=== PATIENT | female | born 1985 ===

== ENCOUNTER 2020-05-29 12:28 | Outpatient (REF) | payer OTHER, SELFPAY | END 2020-05-29 12:29 | disposition home or self-care (01) | LOC: HO.LAB 12:28 | PROVIDERS: Visit Provider Internal Medicine | DX: Z20.828 Contact with and (suspected) exposure to other viral communicable diseases (principal) | CPT/HCPCS: 36415; C9803; U0003 ==

== ENCOUNTER 2022-04-28 17:41 | Emergency (ER) | payer OTHER, SELFPAY ==
[2022-04-28 19:14] VITALS: BP 115/68; PULSE 76; RESP 16; TEMP 36.5; O2SAT 97; BMI 38.5
--- NOTE | 2022-04-28 19:15 | ED.URI ---
HPI - URI/Sore Throat General Chief Complaint: Headache Stated Complaint: head pressure, congestion Related Data Allergies Allergy/AdvReac Type Severity Reaction Status Date / Time No Known Allergies Allergy Verified 04/28/22 19:14 [facility] Social History Social History Advance Directives: No Advance Directives Information Provided: No Physical Exam Vital Signs: Vital Signs: Last Vital Signs Temp 97.7 F 04/28/22 19:14 Pulse 76 04/28/22 19:14 Resp 16 04/28/22 19:14 BP 115/68 04/28/22 19:14 Pulse Ox 97 04/28/22 19:14 O2 Del Method 04/28/22 19:14 BMI result Body Mass Index 38.5 Course Course Course Narrative: Patient is a 37-year-old female presents today with having coughing generalized malaise headache not feeling well for the last 24 hours. Feels very tired. Has a history of asthma. Never been hospitalized in the past. Patient had COVID in the past. Not vaccinated for COVID. Not vaccinated for flu. No fever positive diarrhea home. Diarrhea is yellow-green in color. Flu RSV COVID was sent. Will monitor. Patient put back in the waiting room Discharge Plan Discharge Clinical Impression: Headache Patient Disposition: Elopement Interventions: ED Discharge Assessment Last Done: 04/28/22 21:56 Discharge Date/Time: 04/28/22 22:40
--- NOTE | 2022-04-28 21:55 | PC.NURSE ---
pt called 3 times and not in waiting area. ledy
== END 2022-04-28 22:40 | disposition left against medical advice (07) ==
LOC: HO.ED 22:39
PROVIDERS: Emergency Provider Emergency Medicine
DX: R51.9 Headache, unspecified (principal); R09.89 Other specified symptoms and signs involving the circulatory and respiratory systems
CPT/HCPCS: 99282

== ENCOUNTER 2022-07-06 08:52 | Emergency (ER) | payer OTHER, SELFPAY ==
--- NOTE | ~2022-07-06 | XR_ITS ---
EXAMINATION: XR CHEST CLINICAL INFORMATION: Chest pain. COMPARISON: None TECHNIQUE: 2 views of the chest were obtained. FINDINGS: No significant abnormality is noted involving the heart, lungs, mediastinum, bony thorax or soft tissues. Status post cholecystectomy. XR/XR chest 2V IMPRESSION: Unremarkable examination.
--- NOTE | 2022-07-06 08:58 | ECG_ITS ---
Test Reason : chest pain Blood Pressure : / mmHG Vent. Rate : 110 BPM Atrial Rate : 110 BPM P-R Int : 128 ms QRS Dur : 068 ms QT Int : 320 ms P-R-T Axes : -09 -07 025 degrees QTc Int : 433 ms Sinus tachycardia Otherwise normal ECG When compared with ECG of 16-JUN-2001 23:38, No significant change was found Referred By: Generic ED Physician Electronically Signed By:Aureliano Rai
[2022-07-06 09:02] VITALS: BP 152/99; PULSE 114; RESP 22; TEMP 36.3; O2SAT 95; BMI 39.0
--- NOTE | 2022-07-06 09:22 | ED_ITS ---
HPI - Chest Pain General Chief Complaint: Chest Pain Stated Complaint: SOB/CP/Fever Time Seen by Provider: 07/06/22 09:11 Source: patient Mode of arrival: ambulatory Limitations: no limitations History of Present Illness HPI narrative: 37 yo female with PMH of HTN, asthma, hypothyroidism here with cough, runny nos e, fevers, wheezing - only has maintenance INH, no prior intubations, no recent prednisone. not vaccinated for COVID. exposed to mom who was sick with COVID this weekend. MD complaint: other (fevers, cough, chills) Onset (ago): day(s) (3) Timing of current episode: constant Prior episodes: Yes Onset: during rest Pain radiation: none Severity: moderate Quality: aching Relieving factors: nothing Exacerbating factors: other (coughing) Context: recent illness Associated symptoms: dyspnea, fever and cough Treatment prior to arrival: other (motrin) Related Data Previous Rx's Medication Instructions Recorded albuterol sulfate 90 mcg/actuation 2 puff inhalation QID PRN 07/06/22 aerosol inhaler shortness of breath or wheezing #6.7 grams nirmatrelvir 300 mg (150 mg See Rx Instructions PO .COMPLEX 07/06/22 x2)-ritonavir 100 mg tablet,dose #30 ea pack(EUA) (Paxlovid) prednisone 20 mg tablet 40 mg PO DAILY 5 days #10 tabs 07/06/22 Allergies Allergy/AdvReac Type Severity Reaction Status Date / Time No Known Allergies Allergy Verified 07/06/22 09:09 Review of Systems Review of Systems: Constitutional : positive Fever, positive Chills, positive fatigue, positive Malaise ENT/Mouth : positive sore throat, positive runny nose Eyes: No Discharge Cardiovascular : No Chest Pain, pos SOB Respiratory : pos Cough, No Sputum Gastrointestinal : No Nausea, No Vomiting, No Diarrhea Genitourinary : No Dysuria, No Urinary Frequency Musculoskeletal : positive Myalgia Skin : No rash Neuro : No Headache PMFSH Past Medical History Attestation statement: The following information was validated with the patient. Medical History (Updated 07/06/22 @ 11:16 by Marcella Pappas DO) Asthma HTN (hypertension) Hypothyroidism Social History Social History (Updated 07/06/22 @ 10:06 by Marcella Pappas DO) Patient Tobacco Use Status: Never used Tobacco Smoked in Last 30 Days: No Advance Directives: No Advance Directives Information Provided: Yes Patient : No Physical Exam Vital Signs: Vital Signs: Last Vital Signs Temp 97.3 F 07/06/22 09:02 Pulse 115 H 07/06/22 09:58 Resp 16 07/06/22 09:58 BP 152/99 H 07/06/22 09:02 Pulse Ox 100 07/06/22 09:58 O2 Del Method 07/06/22 09:58 BMI result Body Mass Index 39.0 Appearance: Alert. Oriented X3. No acute distress. Eyes: Pupils equal, round and reactive to light. ENT: Pharynx normal. Neck: Normal inspection. Neck supple. CVS: Normal heart rate and rhythm. Pulses normal. Respiratory: No respiratory distress. Breath sounds diffuse exp wheezes throughout Abdomen: Soft and nontender. Skin: Skin warm and dry. Normal skin color. Normal skin turgor. Extremities: No lower extremity edema. No calf ttp Neuro: Oriented X 3. No motor deficit. No sensory deficit. Course Course Course Narrative: no hypoxia, improved clear lungs talking up a storm on her phone - interaction rechecker has to stop her amlodopine wants paxlovid Medications Administered Discontinued Medications Generic Name Dose Route Start Last Admin Trade Name Gerard PRN Reason Stop Dose Admin Acetaminophen 650 mg 07/06/22 09:25 07/06/22 09:54 Acetaminophen 325 Mg Tablet PO 07/06/22 09:26 650 mg ONCE ONE Administration Albuterol Sulfate 5 mg 07/06/22 09:25 07/06/22 09:50 Albuterol Sulfate (0.083%) 2.5 Mg/3 Ml Vial.Neb INHALE 07/06/22 09:26 5 mg ONCE ONE Administration Methylprednisolone Sodium Succinate 60 mg 07/06/22 09:25 07/06/22 09:54 Methylprednisolone Sod Succ 125 Mg/2 Ml Vial IVPUSH 07/06/22 09:26 60 mg ONCE ONE Administration Medical Decision Making Medical Decision Making MDM Narrative: 37 yo female with PMH of asthma, HTN, hypothyroidism here with c/o URI symptoms exacerbating her asthma - she is not vaccinated against COVID with direct exposure at this time will need nebs, CXR for pneumonia, COVID swab, IV steroids, neb treatment - if she improves anticipate DC with rescue inhaler, prednisone and paxlovid after interaction rechecker. Doubt ACS or PE - this is URI related. Differential Diagnosis Differential Diagnoses: The differential diagnosis associated with the presentation includes pneumonia, covid, viral Lab Data MDM Lab Attestation statement: I reviewed the patient's lab results. 07/06/22 09:35 07/06/22 09:35 Labs: Lab Results 07/06/22 07/06/22 07/06/22 Range/Units 09:29 09:29 09:35 WBC 7.4 (4.8-10.8) X10*3/uL RBC 4.60 (4.20-5.50) X10*6/uL Hgb 12.5 (12.0-16.0) g/dl Hct 38.6 (37.0-47.0) % MCV 83.9 (80.0-98.0) fL MCH 27.2 (27.0-33.0) pg MCHC 32.4 (31.0-35.0) g/dl RDW 15.7 (11.0-16.0) % Plt Count 304 (160-400) X10*3/uL MPV 10.6 (9.4-12.3) fL Immature Gran % (Auto) 0.4 (0.0-0.4) % Neut % (Auto) 74.8 H (45-73) % Lymph % (Auto) 13.7 L (20-40) % [place] % (Auto) 8.2 (2-11) % Eos % (Auto) 2.4 (0-4) % Baso % (Auto) 0.5 (0-2) % Lymph # (Auto) 1.0 L (1.2-4.9) X10*3/uL [place] # (Auto) 0.6 (0.1-1.2) X10*3/uL Eos # (Auto) 0.2 (0.0-0.4) X10*3/uL Baso # (Auto) 0.0 (0.0-0.2) X10*3/uL Abs Immat Gran (auto) 0.03 (0.00-0.03) X10*3/uL Absolute Neuts (auto) 5.5 (2.0-8.3) x10*3/uL Absolute Nucleated RBC 0.000 (0.0-0.012) X10*3/uL Nucleated RBC % (auto) 0.0 (0.0-0.2) /100WBC Sodium (135-145) mmol/L Potassium (3.3-5.1) mmol/L Chloride (96-108) mmol/L Carbon Dioxide (22-29) mmol/L Anion Gap (12-20) BUN (9-16) mg/dL Creatinine (0.5-1.4) mg/dL Estim Creat Clear Calc Estimated GFR Random Glucose (60-115) mg/dL Calcium (8.4-10.2) mg/dL Total Bilirubin (0.0-1.0) mg/dL Direct Bilirubin (0.0-0.5) mg/dL AST (5-31) U/L ALT (0-31) U/L Alkaline Phosphatase (39-117) U/L Troponin I High Sens (<3.5-17.0) ng/L Total Protein (6.5-8.0) g/dL Albumin (3.5-5.0) g/dL Lipase (8-78) U/L COVID-19 ([facility]) Positive A (Negative) COVID-19 Clin Com See Note Influenza Type A (PEPE) Negative (Negative) Influenza Type B (PEPE) Negative (Negative) Influenza A & B Note See Note 07/06/22 07/06/22 Range/Units 09:35 09:35 WBC (4.8-10.8) X10*3/uL RBC (4.20-5.50) X10*6/uL Hgb (12.0-16.0) g/dl Hct (37.0-47.0) % MCV (80.0-98.0) fL MCH (27.0-33.0) pg MCHC (31.0-35.0) g/dl RDW (11.0-16.0) % Plt Count (160-400) X10*3/uL MPV (9.4-12.3) fL Immature Gran % (Auto) (0.0-0.4) % Neut % (Auto) (45-73) % Lymph % (Auto) (20-40) % [place] % (Auto) (2-11) % Eos % (Auto) (0-4) % Baso % (Auto) (0-2) % Lymph # (Auto) (1.2-4.9) X10*3/uL [place] # (Auto) (0.1-1.2) X10*3/uL Eos # (Auto) (0.0-0.4) X10*3/uL Baso # (Auto) (0.0-0.2) X10*3/uL Abs Immat Gran (auto) (0.00-0.03) X10*3/uL Absolute Neuts (auto) (2.0-8.3) x10*3/uL Absolute Nucleated RBC (0.0-0.012) X10*3/uL Nucleated RBC % (auto) (0.0-0.2) /100WBC Sodium 135 (135-145) mmol/L Potassium 3.9 (3.3-5.1) mmol/L Chloride 105 (96-108) mmol/L Carbon Dioxide 22 (22-29) mmol/L Anion Gap 12 (12-20) BUN 8 L (9-16) mg/dL Creatinine 0.93 (0.5-1.4) mg/dL Estim Creat Clear Calc 83.1 Estimated GFR > 60 Random Glucose 104 (60-115) mg/dL Calcium 8.7 (8.4-10.2) mg/dL Total Bilirubin 0.9 (0.0-1.0) mg/dL Direct Bilirubin 0.3 (0.0-0.5) mg/dL AST 26 (5-31) U/L ALT 31 (0-31) U/L Alkaline Phosphatase 113 (39-117) U/L Troponin I High Sens < 3.5 (<3.5-17.0) ng/L Total Protein 7.4 (6.5-8.0) g/dL Albumin 4.0 (3.5-5.0) g/dL Lipase 72 (8-78) U/L COVID-19 ([facility]) (Negative) COVID-19 Clin Com Influenza Type A (PEPE) (Negative) Influenza Type B (PEPE) (Negative) Influenza A & B Note Independent Interpretation I performed an independent interpretation of an: EKG Interpretation: Rate: 110 Rhythm: sinus tach [place]: left Normal P waves. Normal [place]. Normal QRS complex. ST T wave : no ULICES qTC: normal prior studies: no acute ischemia The study has been interpreted contemporaneously by me. . Radiology Impression Discussion of test interpretation with radiology: I have reviewed the radiologist's reading. Prescription Management I considered prescription management with: Antiviral Discharge Plan Discharge Clinical Impression: COVID-19 Asthma Qualifiers: Asthma severity: moderate Asthma persistence: persistent Asthma complication type: with acute exacerbation Qualified Code(s): J45.41 - Moderate persistent asthma with (acute) exacerbation Patient Disposition: Home, Self-Care Instructions: Asthma (ED), COVID-19 (Coronavirus Disease 2019) (ED) Additional Instructions: return to ED for any worsening symptoms or concerns return for chest pain, worsening breathing, you feel you are worsening you cannot take your amlodipine while taking paxlovid please hold it and hold for 2 days after medications Prescriptions: New prednisone 20 mg tablet 40 mg PO DAILY 5 Days Qty: 10 0RF albuterol sulfate 90 mcg/actuation HFA aerosol inhaler 2 puff inhalation QID PRN (Reason: shortness of breath or wheezing) Qty: 6.7 0RF Paxlovid (EUA) 300 mg (150 mg x 2)-100 mg tablets,dose pack See Rx Instructions .ROUTE .COMPLEX Qty: 30 0RF Rx Instructions: take TWO 150 mg tablets of nirmatrelvir with ONE 100 mg tablet of ritonavir twice daily for 5 days
[2022-07-06 09:41] LABS: MANUAL DIFF FLAG NO
[2022-07-06 09:45] LABS: Basophils Percent Auto 0.5 % (0-2); Eosinophils Absolute Auto 0.2 X10*3/uL (0.0-0.4); Eosinophils Percent Auto 2.4 % (0-4); Hematocrit 38.6 % (37.0-47.0); Hemoglobin 12.5 g/dl (12.0-16.0); Imm Gran Abs Auto 0.03 X10*3/uL (0.00-0.03); Imm Gran Pct Auto 0.4 % (0.0-0.4); Lymphocytes Percent Auto 13.7 % (20-40); Mean Corpuscular HGB Conc 32.4 g/dl (31.0-35.0); Mean Corpuscular Hemoglobin 27.2 pg (27.0-33.0); Mean Corpuscular Volume 83.9 fL (80.0-98.0); Mean Platelet Volume 10.6 fL (9.4-12.3); Monocytes Absolute Auto 0.6 X10*3/uL (0.1-1.2); Monocytes Percent Auto 8.2 % (2-11); Neutrophils Absolute Auto 5.5 x10*3/uL (2.0-8.3); Neutrophils Percent Auto 74.8 % (45-73); Platelet Count 304 X10*3/uL (160-400); Red Cell Distribution Width 15.7 % (11.0-16.0); White Blood Count 7.4 X10*3/uL (4.8-10.8)
[2022-07-06] MEDS: Albuterol Sulfate (0.083%) 2.5 MG/3 ML VIAL.NEB 5 MG INHALE (09:50)
[2022-07-06 09:51] VITALS: PULSE 100; RESP 22; O2SAT 96
[2022-07-06] MEDS: methylPREDNISolone Sod Succ 125 MG/2 ML VIAL 60 MG IVPUSH (09:54)
[2022-07-06] MEDS: Acetaminophen 325 MG TABLET 650 MG PO (09:54)
[2022-07-06 09:58] VITALS: PULSE 115; RESP 16; O2SAT 100
[2022-07-06 10:02] LABS: Alanine Aminotransferase 31 U/L (0-31); Alkaline Phosphatase 113 U/L (39-117); Anion Gap 12 (12-20); Aspartate Amino Transferase 26 U/L (5-31); Bilirubin Direct 0.3 mg/dL (0.0-0.5); Bilirubin Total 0.9 mg/dL (0.0-1.0); Blood Urea Nitrogen 8 mg/dL (9-16); Calcium 8.7 mg/dL (8.4-10.2); Carbon Dioxide 22 mmol/L (22-29); Chloride 105 mmol/L (96-108); Creatinine Clr Calc Pharmacy 83.1; Estimated Glomerular Filt Rate > 60; Glucose Random 104 mg/dL (60-115); Lipase 72 U/L (8-78); Potassium 3.9 mmol/L (3.3-5.1); Sodium 135 mmol/L (135-145); Total Protein 7.4 g/dL (6.5-8.0)
[2022-07-06 10:10] LABS: Troponin-I High Sensitivity < 3.5 ng/L (<3.5-17.0)
[2022-07-06 10:11] LABS: COVID-19 Test Positive (Negative); IDNOW Serial# BCCEAD1C
[2022-07-06 10:12] LABS: IDNOW Serial# 9DB6401D; Influenza A Negative (Negative); Influenza B2 Negative (Negative)
[2022-07-06 10:51] VITALS: BP 106/70; PULSE 114; RESP 16; TEMP 37.6; O2SAT 95
== END 2022-07-06 12:24 | disposition home or self-care (01) ==
PROVIDERS: Emergency Provider Emergency Medicine
DX: U07.1 COVID-19 (principal); R06.02 Shortness of breath; R05.9 Cough, unspecified; R50.9 Fever, unspecified; Z79.899 Other long term (current) drug therapy
CPT/HCPCS: 71046; 80048; 80076; 83690; 84484; 85025; 87502; 87635; 93005; 94640; 96374; 99284; 99285; J2930

== ENCOUNTER 2023-12-01 09:38 | Emergency (ER) | payer OTHER, SELFPAY ==
[2023-12-01 10:22] VITALS: BP 139/88; PULSE 73; RESP 16; TEMP 36.8; O2SAT 98; BMI 24.4
--- NOTE | 2023-12-01 11:32 | ED_ITS ---
HPI - Back Pain/Injury General Chief Complaint: Back Pain/Injury Stated Complaint: back pain Time Seen by Provider: 12/01/23 11:32 Source: patient Mode of arrival: ambulatory Limitations: no limitations History of Present Illness ED Provider: Lorenza Espinoza PA-C HPI Narrative: 38 yo female presents to the ER for evaluation of left sided neck, shoulder, and upper back pain for the last 1 week. No preceding event or injury but she works at [employer] where she is on her feet a lot and does a lot of lifting and twisting. The pain is constant, spasming in nature and worse with any movements. No SOB or chest pain. No weakness, numbness or tingling. No headaches. Has not taken any medications for the pain. MD elicited complaint: back pain and other (left sided neck pain) Onset (ago): week(s) (1) Timing: progressively worsening Severity: severe Similar Symptoms Previously: Yes Quality: aching and spasming Location: left upper back Radiation: neck Exacerbating factors: movement Relieving factors: none Context: unknown Associated symptoms: denies other symptoms Related Data Previous Rx's ?Medication ?Instructions ?Recorded albuterol sulfate 90 mcg/actuation 2 puff inhalation QID PRN 07/06/22 aerosol inhaler shortness of breath or wheezing #6.7 grams nirmatrelvir 300 mg (150 mg See Rx Instructions PO .COMPLEX 07/06/22 x2)-ritonavir 100 mg tablet,dose #30 ea pack (Paxlovid) prednisone 20 mg tablet 40 mg (2 x 20 mg) PO DAILY 5 days 07/06/22 #10 tabs acetaminophen 500 mg tablet 1,000 mg (2 x 500 mg) PO Q6H PRN 12/01/23 (Tylenol Extra Strength) pain #20 tabs cyclobenzaprine 10 mg tablet 10 mg PO TID PRN muscle spasm #10 12/01/23 tabs lidocaine 5 % topical patch 1 patch topical DAILY #15 ea 12/01/23 Allergies Allergy/AdvReac Type Severity Reaction Status Date / Time No Known Allergies Allergy Verified 12/01/23 10:24 Review of Systems Review of Systems: Yes all other systems are reviewed and are negative [facility] Past Medical History Medical History (Updated 12/01/23 @ 11:46 by CARLOS Odonnell) Hypothyroidism HTN (hypertension) Asthma Social History Social History (Updated 07/06/22 @ 10:06 by Marcella Pappas DO) Patient Tobacco Use Status: Never used Tobacco Advance Directives: No Physical Exam Vital Signs: Vital Signs: Last Vital Signs Temp 98.3 F 12/01/23 10:22 Pulse 73 12/01/23 10:22 Resp 16 12/01/23 10:22 BP 139/88 12/01/23 10:22 Pulse Ox 98 12/01/23 10:22 O2 Del Method Room Air 12/01/23 10:22 BMI result Body Mass Index 24.4 Appearance: Alert. Oriented X3. No acute distress. Head: normocephalic, atraumatic. Eyes: Pupils equal, round and reactive to light. ENT: Pharynx normal. No tonsillar swelling or exudate. Neck: Normal inspection. Neck supple. palpable muscle spasm on the left lateral neck and upper traperzius. CVS: Normal heart rate and rhythm. Pulses normal. Respiratory: No respiratory distress. Breath sounds normal. Skin: Skin warm and dry. Normal skin color. Normal skin turgor. No rashes. Extremities: No lower extremity edema. No joint swelling. Pain with passive rom of the LUE Back: normal inspection. no midline tenderness. there is soft tissue tenderness and palpable spasm of the left thoracic paraspinous muscles. Neuro/psych: Oriented X 3. No motor deficit. No sensory deficit. CN II-XII intact. Normal speech and cognition. Medical Decision Making Medical Decision Making MDM Narrative: 38 yo female presenting with left sided neck, shoulder, and upper back pain x1 week. no red flag symptoms. exam and clinical presentation are c/w muscle strain and spasm. will treat accordingly. work note provided per request. encouraged f/u with PCP. stable for d/c home. Differential Diagnosis Differential Diagnoses: The differential diagnosis associated with the presentation includes Muscle strain, malignancy, trauma, osteoporosis, nerve root compression, radiculopathy, plexopathy, degenerative disc disease, disc herniation, spinal stenosis, sacroiliac joint dysfunction, facet joint injury, and less likely infection?like abscess or diskitis External Record Review External record reviewed: Outpatient record, Prior outpatient labs and Prior outpatient radiology Tests considered The following testing was considered but not selected: considered xrays Prescription Management I considered prescription management with: Pain Medication Critical Care Time Critical Care Time Critical Care Time: No Discharge Plan Discharge Clinical Impression: Thoracic back pain Patient Disposition: Home, Self-Care Instructions: Back Pain (ED) Additional Instructions: Your pain is most likely due to muscle strain and spasm. Limit bending, lifting or twisting, do left objects heavier than 10lbs until you are feeling better. Use ice several times per day for 20 minutes at a time for the next 48 hours and then change to heat. Take medications as prescribed to help with pain and discomfort. Follow up with your Primary Care Doctor this week. Recommend referral to Physical Therapy. If your pain worsens, if you develop new numbness, tingling, weakness, loss of function or incontinence call 911 or come back to the ER right away for evaluation. Prescriptions: New cyclobenzaprine 10 mg tablet 10 mg PO TID PRN (Reason: muscle spasm) Qty: 10 0RF lidocaine 5 % adhesive patch,medicated 1 patch topical DAILY Qty: 15 0RF Rx Instructions: leave on most painful area for up to 12 hrs acetaminophen [Tylenol Extra Strength] 500 mg tablet 1,000 mg PO Q6H PRN (Reason: pain) Qty: 20 0RF No Action prednisone 20 mg tablet 40 mg PO DAILY 5 Days Qty: 10 0RF albuterol sulfate 90 mcg/actuation HFA aerosol inhaler 2 puff inhalation QID PRN (Reason: shortness of breath or wheezing) Qty: 6.7 0RF Paxlovid 300 mg (150 mg x 2)-100 mg tablets,dose pack See Rx Instructions .ROUTE .COMPLEX Qty: 30 0RF Rx Instructions: take TWO 150 mg tablets of nirmatrelvir with ONE 100 mg tablet of ritonavir twice daily for 5 days Stand Alone Forms: Work/School Release Print Language: [place]
--- NOTE | 2023-12-01 11:33 | PC.NURSE ---
pt was seen by triage provider and assessed for discharge
== END 2023-12-01 11:47 | disposition home or self-care (01) ==
PROVIDERS: Emergency Provider Emergency Medicine
DX: M54.6 Pain in thoracic spine (principal)
CPT/HCPCS: 99281; 99283

== ENCOUNTER 2024-04-01 14:25 | Emergency (ER) | payer OTHER, SELFPAY ==
--- NOTE | ~2024-04-01 | XR_ITS ---
EXAMINATION: XR CHEST CLINICAL INFORMATION: Asthma exacerbation COMPARISON: None available. TECHNIQUE: 2 views of the chest were obtained. FINDINGS: No significant abnormality is noted involving the heart, lungs, mediastinum, bony thorax or soft tissues. XR/XR chest 2V IMPRESSION: Unremarkable examination. Electronically signed by: Alison Trinh MD 04/01/2024 03:38 [place] [facility] [place]
[2024-04-01 14:30] VITALS: BP 125/92; PULSE 81; O2SAT 100; BMI 32.4
[2024-04-01 14:36] VITALS: BP 131/89; PULSE 85; RESP 16; TEMP 36.4; O2SAT 100
--- NOTE | 2024-04-01 14:38 | PC.NURSE ---
biba from home d/t asthma exacerbation s/p pine radha inhalation. pt used albuterol/symbicort @ home w/o relief. audible wheezing upon EMS arrival - received duoneb/solumedrol via EMS w/ minimal effect. upon ED arrival - pt a&ox4. vss and up to date. pt's duoneb finished upon ED arrival. 100% on RA w/o difficulty. pt speaking in full/clear sentences. some sob noted. pt positioned upright to promote patent airway. respirations even/slightly labored. 20gIV placed in the right AC via EMS - patent/intact. pt having chest xray completed at this time. plan of care ongoing.
[2024-04-01 14:56] LABS: MANUAL DIFF FLAG NO
[2024-04-01 14:57] LABS: Basophils Absolute Auto 0.1 X10*3/uL (0.0-0.2); Basophils Percent Auto 0.7 % (0-2); Eosinophils Absolute Auto 0.4 X10*3/uL (0.0-0.4); Eosinophils Percent Auto 4.3 % (0-4); Hemoglobin 13.6 g/dl (12.0-16.0); Imm Gran Abs Auto 0.03 X10*3/uL (0.00-0.03); Imm Gran Pct Auto 0.4 % (0.0-0.4); Lymphocytes Absolute Auto 2.3 X10*3/uL (1.2-4.9); Lymphocytes Percent Auto 28.1 % (20-40); Mean Corpuscular Hemoglobin 29.7 pg (27.0-33.0); Mean Corpuscular Volume 87.3 fL (80.0-98.0); Mean Platelet Volume 10.2 fL (9.4-12.3); Monocytes Absolute Auto 0.4 X10*3/uL (0.1-1.2); Monocytes Percent Auto 5.3 % (2-11); Neutrophils Percent Auto 61.2 % (45-73); Platelet Count 352 X10*3/uL (160-400); Red Blood Count 4.58 X10*6/uL (4.20-5.50); Red Cell Distribution Width 13.8 % (11.0-16.0); White Blood Count 8.2 X10*3/uL (4.8-10.8)
[2024-04-01 15:02] VITALS: PULSE 75; RESP 23; O2SAT 96
[2024-04-01] MEDS: Albuterol Sulfate 2.5 MG, Albuterol/Iprat 2.5/0.5MG 3 ML 3 ML INHALE (15:03)
[2024-04-01 15:21] LABS: Alanine Aminotransferase 14 U/L (0-31); Albumin Level 4.2 g/dL (3.5-5.0); Alkaline Phosphatase 99 U/L (39-117); Anion Gap 16 (12-20); Aspartate Amino Transferase 20 U/L (5-31); Blood Urea Nitrogen 11 mg/dL (9-16); Calcium 9.7 mg/dL (8.4-10.2); Carbon Dioxide 21 mmol/L (22-29); Chloride 108 mmol/L (96-108); Creatinine Clr Calc Pharmacy 82.5; Estimated Glomerular Filt Rate > 60; Glucose Random 103 mg/dL (60-115); HCG Quantitative < 2 mIU/mL; Magnesium 2.1 mg/dL (1.6-2.6); Potassium 4.2 mmol/L (3.3-5.1); Sodium 141 mmol/L (135-145); Total Protein 8.3 g/dL (6.5-8.0)
--- NOTE | 2024-04-01 15:34 | ED_ITS ---
HPI - SOB/Dyspnea General Chief Complaint: Dyspnea Stated Complaint: ASTHMA EXACERBATION Time Seen by Provider: 04/01/24 15:33 Source: patient, EMS, RN notes reviewed and old records reviewed Mode of arrival: EMS History of Present Illness ED Provider: Roxana Hargrove PA-C HPI Narrative: 39-year-old female with a past medical history of asthma presenting to the ED via EMS secondary to asthma exacerbation with cough, chest tightness, and SOB s/p cleaning house with [employer] and [place]. Admits to using albuterol and Symbicort inhalers at home without relief. 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 Denies recent travel, pedal edema, calf tenderness, fever/chills. + possible sick contacts Related Data Previous Rx's ?Medication ?Instructions ?Recorded albuterol sulfate 90 mcg/actuation 2 puff inhalation QID PRN 07/06/22 aerosol inhaler shortness of breath or wheezing #6.7 grams nirmatrelvir 300 mg (150 mg See Rx Instructions PO .COMPLEX 07/06/22 x2)-ritonavir 100 mg tablet,dose #30 ea pack (Paxlovid) prednisone 20 mg tablet 40 mg (2 x 20 mg) PO DAILY 5 days 07/06/22 #10 tabs acetaminophen 500 mg tablet 1,000 mg (2 x 500 mg) PO Q6H PRN 12/01/23 (Tylenol Extra Strength) pain #20 tabs cyclobenzaprine 10 mg tablet 10 mg PO TID PRN muscle spasm #10 12/01/23 tabs lidocaine 5 % topical patch 1 patch topical DAILY #15 ea 12/01/23 albuterol sulfate 2.5 mg/0.5 mL 5 mg inhalation Q4H PRN shortness 04/01/24 solution for nebulization of breath or wheezing #30 ea prednisone 20 mg tablet 40 mg (2 x 20 mg) PO DAILY 5 days 04/01/24 #10 tabs Allergies Allergy/AdvReac Type Severity Reaction Status Date / Time No Known Allergies Allergy Verified 04/01/24 14:32 Review of Systems 2 Review of Systems: Yes all other systems are reviewed and are negative Constitutional: Constitutional: Reports as per [facility] Past Medical History Attestation statement: The following information was validated with the patient. Source: old records reviewed Medical History Hypothyroidism HTN (hypertension) Asthma Social History Social History Patient Tobacco Use Status: Never used Tobacco Advance Directives: No Advance Directives Information Provided: No Do you have a plan to hurt others: No Plan Physical Exam 2 Vital Signs: Vital Signs: Last Vital Signs Temp 97.6 F 04/01/24 14:36 Pulse 75 04/01/24 15:02 Resp 23 H 04/01/24 15:02 BP 131/89 04/01/24 14:36 Pulse Ox 100 04/01/24 14:36 O2 Del Method Room Air 04/01/24 14:36 BMI result Body Mass Index 32.4 Const: General: cooperative, healthy appearing and no acute distress O rientation/consciousness: patient oriented x3 Limitations: no limitations HEENT: Head: Yes normal to inspection and Yes atraumatic Ears: hearing grossly normal bilaterally General nose exam: Normal external nose present Face and sinus: Yes normal facial exam Eyes: General: appearance normal, both eyes and all related structures EOM: EOMs intact bilaterally Neck: Neck: Yes normal visual inspection and Yes no meningeal signs Resp: Effort & Inspection: normal respiratory effort and no respiratory distress Auscultation: clear to auscultation bilaterally, no rales, no rhonchi and no wheezes Cardio: Rate: regular rate Heart sounds: S1 normal heart sound present and S2 normal heart sound present GI: Inspection: Yes normal to inspection Palpation (GI): Soft to palpation, nontender, no guarding and not rigid Skin: Rashes: no rashes Wounds: no wounds Neuro: General: patient oriented x3, tone normal and no meningeal signs C ranial nerves: Yes CN's II-XII intact bilaterally Gait exam (Neuro): Normal gait present Extrem: General: Yes normal to inspection, Yes no pedal edema and Yes no calf tenderness Course Course Course Narrative: -no leukocytosis. Labs otherwise reassuring 1630--ED care transferred to [facility] pending troponin, viral testing, and re- evaluation Medications Administered Discontinued Medications Generic Name Dose Route Start Last Admin Trade Name Freq PRN Reason Stop Dose Admin Albuterol Sulfate 2.5 mg/ 0 mg 04/01/24 14:56 04/01/24 15:03 Albuterol/Ipratropium 3 ml INHALE 04/01/24 14:57 5 dose ONCE ONE Administration Medical Decision Making Medical Decision Making [facility] Narrative: 39-year-old female with a past medical history of asthma presenting to the ED via EMS secondary to asthma exacerbation with cough, chest tightness, and SOB s/p cleaning house with [employer] and [place]. 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 On exam vital signs stable, NAD, nontoxic appearing, talking in complete sentences, on this scenario writer's eval lungs CTA, talking in complete sentences, no pedal edema or calf tenderness. Patient has received treatments by EMS as well as additional DuoNeb in the ED with positive results. Concern for asthma exacerbation vs viral illness vs pneumonia. Lower suspicion for ACS/PE or DVT at this time Plan: EKG, labs, viral studies, CXR, ED bronchodilator protocol, re-evaluate Please refer to course for remaining clinical decision making, interpretation of labs/imaging results, and discussions with consultants and/or family members. Differential Diagnosis Differential Diagnoses: The differential diagnosis associated with the presentation includes As above Admission/Observation Consideration of admission/observation: Escalation of care including admission/observation considered Lab Data [facility] Lab Attestation statement: I reviewed the patient's lab results. 04/01/24 14:53 04/01/24 14:53 Labs: Lab Results 04/01/24 Range/Units 14:53 WBC 8.2 (4.8-10.8) X10*3/uL RBC 4.58 (4.20-5.50) X10*6/uL Hgb 13.6 (12.0-16.0) g/dl Hct 40.0 (37.0-47.0) % MCV 87.3 (80.0-98.0) fL MCH 29.7 (27.0-33.0) pg MCHC 34.0 (31.0-35.0) g/dl RDW 13.8 (11.0-16.0) % Plt Count 352 (160-400) X10*3/uL MPV 10.2 (9.4-12.3) fL Immature Gran % (Auto) 0.4 (0.0-0.4) % Neut % (Auto) 61.2 (45-73) % Lymph % (Auto) 28.1 (20-40) % [place] % (Auto) 5.3 (2-11) % Eos % (Auto) 4.3 H (0-4) % Baso % (Auto) 0.7 (0-2) % Lymph # (Auto) 2.3 (1.2-4.9) X10*3/uL [place] # (Auto) 0.4 (0.1-1.2) X10*3/uL Eos # (Auto) 0.4 (0.0-0.4) X10*3/uL Baso # (Auto) 0.1 (0.0-0.2) X10*3/uL Abs Immat Gran (auto) 0.03 (0.00-0.03) X10*3/uL Absolute Neuts (auto) 5.0 (2.0-8.3) x10*3/uL Absolute Nucleated RBC 0.000 (0.0-0.012) X10*3/uL Nucleated RBC % (auto) 0.0 (0.0-0.2) /100WBC Sodium 141 (135-145) mmol/L Potassium 4.2 (3.3-5.1) mmol/L Chloride 108 (96-108) mmol/L Carbon Dioxide 21 L (22-29) mmol/L Anion Gap 16 (12-20) BUN 11 (9-16) mg/dL Creatinine 0.83 (0.5-1.4) mg/dL Estim Creat Clear Calc 82.5 Estimated GFR > 60 Random Glucose 103 (60-115) mg/dL Calcium 9.7 D (8.4-10.2) mg/dL Magnesium 2.1 (1.6-2.6) mg/dL Total Bilirubin 1.0 (0.0-1.0) mg/dL AST 20 (5-31) U/L ALT 14 (0-31) U/L Alkaline Phosphatase 99 (39-117) U/L Total Protein 8.3 H (6.5-8.0) g/dL Albumin 4.2 (3.5-5.0) g/dL Beta HCG, Quant < 2 mIU/mL Independent Interpretation I performed an independent interpretation of an: EKG and Plain X-Ray Radiology Impression Discussion of test interpretation with radiology: I have reviewed the radiologist's reading. Independent Historian Clinical information obtained from an independent historian. History obtained from or confirmed by: EMS External Record Review External record reviewed: Inpatient record, Office record, Outpatient record, Prior outpatient labs, Prior outpatient radiology, Primary care record and Outside ED record Tests considered The following testing was considered but not selected: As above Prescription Management I considered prescription management with: Antibiotic Chronic Conditions Patient?s care impacted by: Other (Asthma) Social Determinants Patient?s care significantly limited by Social Determinants of Health including: Other Social Determinant of Health Discharge Plan Discharge Clinical Impression: Asthma with exacerbation Patient Disposition: Still a Patient Instructions: Asthma (DC) Additional Instructions: Your x-rays unremarkable Please take prednisone as prescribed until completion Continue to use your inhalers and neb machine at home If her symptoms persist or worsen, you constant worsening chest pain or shortness of breath return to the ED Prescriptions: New prednisone 20 mg tablet 40 mg PO DAILY 5 Days Qty: 10 0RF albuterol sulfate 2.5 mg/0.5 mL solution for nebulization 5 mg inhalation Q4H PRN (Reason: shortness of breath or wheezing) Qty: 30 0RF No Action prednisone 20 mg tablet 40 mg PO DAILY 5 Days Qty: 10 0RF albuterol sulfate 90 mcg/actuation HFA aerosol inhaler 2 puff inhalation QID PRN (Reason: shortness of breath or wheezing) Qty: 6.7 0RF Paxlovid 300 mg (150 mg x 2)-100 mg tablets,dose pack See Rx Instructions .ROUTE .COMPLEX Qty: 30 0RF Rx Instructions: take TWO 150 mg tablets of nirmatrelvir with ONE 100 mg tablet of ritonavir twice daily for 5 days cyclobenzaprine 10 mg tablet 10 mg PO TID PRN (Reason: muscle spasm) Qty: 10 0RF lidocaine 5 % adhesive patch,medicated 1 patch topical DAILY Qty: 15 0RF Rx Instructions: leave on most painful area for up to 12 hrs acetaminophen [Tylenol Extra Strength] 500 mg tablet 1,000 mg PO Q6H PRN (Reason: pain) Qty: 20 0RF Referrals: Physician,Unknown J [Primary Care Provider] - Print Language: Kiswahili
--- NOTE | 2024-04-01 15:38 | ECG_ITS ---
Test Reason : DYSPNEA Blood Pressure : / mmHG Vent. Rate : 085 BPM Atrial Rate : 085 BPM P-R Int : 120 ms QRS Dur : 070 ms QT Int : 370 ms P-R-T Axes : 009 -16 005 degrees QTc Int : 440 ms Normal sinus rhythm Normal ECG When compared with ECG of 06-JUL-2022 09:03, Nonspecific T wave abnormality, worse in Anterior leads Referred By: Roxana Hargrove Electronically Signed By:Aureliano Rai
[2024-04-01 16:26] VITALS: BP 144/85; PULSE 96; RESP 18; TEMP 37; O2SAT 96
[2024-04-01 17:57] LABS: COVID-19 Test Negative (Negative); IDNOW Serial# 152EDE1D; IDNOW Serial# 9DB6401D; Influenza A Negative (Negative); Influenza B2 Negative (Negative)
[2024-04-01 18:02] LABS: Troponin-I High Sensitivity < 2.7 ng/L (<3.5-17.0)
[2024-04-01 18:20] VITALS: BP 137/80; PULSE 90; RESP 16; TEMP 36.2; O2SAT 94
== END 2024-04-01 18:21 | disposition home or self-care (01) ==
PROVIDERS: Physician Assistant; Physician Assistant Medical; Emergency Provider Emergency Medicine
DX: J45.901 Unspecified asthma with (acute) exacerbation (principal); R05.9 Cough, unspecified; R07.89 Other chest pain; R06.02 Shortness of breath; Z11.52 Encounter for screening for COVID-19; Z79.899 Other long term (current) drug therapy
CPT/HCPCS: 36415; 71046; 80053; 83735; 84484; 84702; 85025; 87502; 87635; 93005; 94640; 99284

== ENCOUNTER → 2024-04-01 15:38 | Outpatient (BNV) | payer OTHER, SELFPAY | PROVIDERS: Emergency Provider Emergency Medicine; Visit Provider Internal Medicine Cardiovascular Disease | DX: R06.09 Other forms of dyspnea (principal) | CPT/HCPCS: 93010 ==

== ENCOUNTER 2024-06-05 08:40 | Emergency (ER) | payer OTHER, SELFPAY ==
[2024-06-05 08:46] VITALS: BP 143/96; PULSE 95; RESP 20; TEMP 36.6; O2SAT 97; BMI 31.8
[2024-06-05 09:39] LABS: MANUAL DIFF FLAG NO
[2024-06-05 09:51] LABS: Basophils Percent Auto 0.4 % (0-2); Eosinophils Absolute Auto 0.3 X10*3/uL (0.0-0.4); Eosinophils Percent Auto 4.8 % (0-4); Hematocrit 42.9 % (37.0-47.0); Hemoglobin 14.6 g/dl (12.0-16.0); Imm Gran Abs Auto 0.01 X10*3/uL (0.00-0.03); Imm Gran Pct Auto 0.1 % (0.0-0.4); Lymphocytes Absolute Auto 1.3 X10*3/uL (1.2-4.9); Lymphocytes Percent Auto 19.2 % (20-40); Mean Corpuscular Hemoglobin 29.4 pg (27.0-33.0); Mean Corpuscular Volume 86.5 fL (80.0-98.0); Mean Platelet Volume 11.1 fL (9.4-12.3); Monocytes Absolute Auto 0.3 X10*3/uL (0.1-1.2); Monocytes Percent Auto 4.6 % (2-11); Neutrophils Absolute Auto 4.9 x10*3/uL (2.0-8.3); Neutrophils Percent Auto 70.9 % (45-73); Platelet Count 293 X10*3/uL (160-400); Red Blood Count 4.96 X10*6/uL (4.20-5.50); Red Cell Distribution Width 13.2 % (11.0-16.0); White Blood Count 6.9 X10*3/uL (4.8-10.8)
[2024-06-05 10:03] LABS: Alanine Aminotransferase 17 U/L (0-31); Albumin Level 4.4 g/dL (3.5-5.0); Alkaline Phosphatase 101 U/L (39-117); Anion Gap 10 (12-20); Aspartate Amino Transferase 19 U/L (5-31); Bilirubin Total 1.4 mg/dL (0.0-1.0); Blood Urea Nitrogen 11 mg/dL (9-16); Calcium 8.8 mg/dL (8.4-10.2); Carbon Dioxide 24 mmol/L (22-29); Chloride 106 mmol/L (96-108); Creatinine Clr Calc Pharmacy 82.6; Estimated Glomerular Filt Rate > 60; Glucose Random 97 mg/dL (60-115); Potassium 4.1 mmol/L (3.3-5.1); Sodium 136 mmol/L (135-145); Total Protein 8.3 g/dL (6.5-8.0)
[2024-06-05 10:31] LABS: Influenza A PCR NEGATIVE (Negative); Influenza B PCR NEGATIVE (Negative); Resp Syncy Virus RNA Qual PCR NEGATIVE (Negative); SARS COV2 PCR INHOUSE NEGATIVE (Negative)
== END 2024-06-05 14:11 | disposition left against medical advice (07) ==
PROVIDERS: Emergency Provider Emergency Medicine
DX: R10.9 Unspecified abdominal pain (principal); R19.7 Diarrhea, unspecified; Z03.818 Encounter for observation for suspected exposure to other biological agents ruled out; Z53.21 Procedure and treatment not carried out due to patient leaving prior to being seen by health care provider
CPT/HCPCS: 0241U; 36415; 80053; 85025; 99281

== ENCOUNTER 2024-06-05 18:23 | Emergency (ER) | payer OTHER, SELFPAY ==
[2024-06-05 18:45] VITALS: BP 143/98; PULSE 96; RESP 20; TEMP 36.5; O2SAT 98; BMI 31.8
--- NOTE | 2024-06-05 18:51 | ED_ITS ---
HPI - General Adult General Chief complaint: Abdominal Pain Stated complaint: N/V/D Time Seen by Provider: 06/05/24 23:38 Source: patient Limitations: no limitations History of Present Illness ED Provider: Loly Serna NP HPI narrative: Patient is a 39-year-old female who presents emergency department for evaluation she has been experiencing nausea vomiting diarrhea and abdominal cramping. Reports 1 episode of vomiting yesterday. Two episodes of liquid diarrhea today. Reports her children have recently been ill with a similar symptoms. She reports that she presents here today as she has started a new job she missed work yesterday as well as today and is requesting a work note so that she may return as of . She has had no episodes of vomiting today. She is tolerating liquids without vomiting. Denies fevers, chills, chest pain, hematemesis, diarrhea, constipation, hematochezia, melena, dysuria, urinary frequency, urinary urgency, urinary hesitancy, hematuria. denies pelvic pain or abnormal vaginal discharge. Denies concern for sexually transmitted infection. Denies concern for . Related Data Previous Rx's ?Medication ?Instructions ?Recorded albuterol sulfate 90 mcg/actuation 2 puff inhalation QID PRN 07/06/22 aerosol inhaler shortness of breath or wheezing #6.7 grams nirmatrelvir 300 mg (150 mg See Rx Instructions PO .COMPLEX 07/06/22 x2)-ritonavir 100 mg tablet,dose #30 ea pack (Paxlovid) prednisone 20 mg tablet 40 mg (2 x 20 mg) PO DAILY 5 days 07/06/22 #10 tabs acetaminophen 500 mg tablet 1,000 mg (2 x 500 mg) PO Q6H PRN 12/01/23 (Tylenol Extra Strength) pain #20 tabs cyclobenzaprine 10 mg tablet 10 mg PO TID PRN muscle spasm #10 12/01/23 tabs lidocaine 5 % topical patch 1 patch topical DAILY #15 ea 12/01/23 albuterol sulfate 2.5 mg/0.5 mL 5 mg inhalation Q4H PRN shortness 04/01/24 solution for nebulization of breath or wheezing #30 ea prednisone 20 mg tablet 40 mg (2 x 20 mg) PO DAILY 5 days 04/01/24 #10 tabs Allergies Allergy/AdvReac Type Severity Reaction Status Date / Time No Known Allergies Allergy Verified 06/05/24 18:46 Review of Systems 2 Review of Systems: Yes all other systems are reviewed and are negative [facility] Past Medical History Attestation statement: The following information was validated with the patient. Source: old records reviewed Medical History Hypothyroidism HTN (hypertension) Asthma Social History Social History Patient Tobacco Use Status: Never used Tobacco Advance Directives: No Advance Directives Information Provided: No Physical Exam ED Vital Signs: Vital Signs - 24 hr 06/05/24 18:45 06/06/24 00:10 Temperature 97.7 F 98.4 F Pulse Rate 96 86 Respiratory Rate 20 16 Blood Pressure 143/98 H 122/85 Pulse Oximetry 98 98 Oxygen Delivery Method Room Air Room Air BMI result Body Mass Index 31.8 Appearance: Alert.?Oriented to person, place and time. No acute distress.?Normal affect.?? Neck: Normal inspection.? Neck supple.?? CVS: Heart sounds normal. Normal heart rate and rhythm.? Pulses normal.?? Respiratory: No respiratory distress.? Lung sounds clear to auscultation bilaterally?? Abdomen: Soft and non-tender. No rebound tenderness at McBurney's point. Negative psoas sign. Negative Rovsing sign. Negative Lu sign. No CVAT. Normoactive bowel sounds. No pulsatile mass.?? Skin: Skin warm and dry.? Normal skin color.? Extremities: No lower extremity edema.? Neuro: Moves all extremities spontaneously. Sensation intact bilaterally. Ambulates with normal steady gait. Course Course Course Narrative: RME; 39-year-old female presents to ED for nausea vomiting diarrhea and abdominal cramps. Patient in the ED earlier in the day by left to go take care of children. Repeat labs ordered. Medical Decision Making Medical Decision Making [facility] Narrative: Patient is a 39-year-old female who presents emergency department for evaluation of acute gastrointestinal illness as per HPI in the setting of exposure to her daughters who have been ill with similar symptoms. She states that she only came to emergency department today as she requires a work note. Overall she appears well, nontoxic, afebrile. Her abdominal examination is benign, no signs of systemic toxicity no hypotension. Unlikely to have acute surgical abdomen. No peritoneal signs. She has no associated chest pain shortness of breath or URI symptoms to suggest pneumonia. No hematochezia or melena, no excess pain to the lower abdomen or tenderness on palpation to suggest acute cholecystitis diverticulitis. No appreciable hernia. No symptoms, declines providing urinalysis to exclude UTI and given she is young and otherwise asymptomatic from a genitourinary standpoint lower suspicion that this is an etiology for any of her symptoms. History and physical exam favors gastroenteritis, she is tolerating oral fluids advised clear liquids for the next 24 hours followed by a bland diet worrisome signs and symptoms that would warrant re-evaluation emergency department. All questions answered. Stable for discharge. Differential Diagnosis Differential Diagnoses: The differential diagnosis associated with the presentation includes (See narrative above) Admission/Observation Consideration of admission/observation: Escalation of care including admission/observation considered (See narrative above ) Lab Data [facility] Lab Attestation statement: I reviewed the patient's lab results. CBC is without leukocytosis anemia or thrombocytopenia. No electrolyte derangement. No ANTONIA. Viral serologies are negative. 06/05/24 19:12 06/05/24 19:12 Labs: Lab Results 06/05/24 Range/Units 19:12 WBC 6.7 (4.8-10.8) X10*3/uL RBC 4.68 (4.20-5.50) X10*6/uL Hgb 13.7 (12.0-16.0) g/dl Hct 41.0 (37.0-47.0) % MCV 87.6 (80.0-98.0) fL MCH 29.3 (27.0-33.0) pg MCHC 33.4 (31.0-35.0) g/dl RDW 13.2 (11.0-16.0) % Plt Count 293 (160-400) X10*3/uL MPV 10.6 (9.4-12.3) fL Immature Gran % (Auto) 0.3 (0.0-0.4) % Neut % (Auto) 65.9 (45-73) % Lymph % (Auto) 22.0 (20-40) % [place] % (Auto) 6.0 (2-11) % Eos % (Auto) 5.4 H (0-4) % Baso % (Auto) 0.4 (0-2) % Lymph # (Auto) 1.5 (1.2-4.9) X10*3/uL [place] # (Auto) 0.4 (0.1-1.2) X10*3/uL Eos # (Auto) 0.4 (0.0-0.4) X10*3/uL Baso # (Auto) 0.0 (0.0-0.2) X10*3/uL Abs Immat Gran (auto) 0.02 (0.00-0.03) X10*3/uL Absolute Neuts (auto) 4.4 (2.0-8.3) x10*3/uL Absolute Nucleated RBC 0.000 (0.0-0.012) X10*3/uL Nucleated RBC % (auto) 0.0 (0.0-0.2) /100WBC Sodium 138 (135-145) mmol/L Potassium 4.1 (3.3-5.1) mmol/L Chloride 108 (96-108) mmol/L Carbon Dioxide 26 (22-29) mmol/L Anion Gap 8 L (12-20) BUN 12 (9-16) mg/dL Creatinine 0.77 (0.5-1.4) mg/dL Estim Creat Clear Calc 88.1 Estimated GFR > 60 Random Glucose 100 (60-115) mg/dL Calcium 8.6 (8.4-10.2) mg/dL Total Bilirubin 0.7 (0.0-1.0) mg/dL AST 19 (5-31) U/L ALT 12 (0-31) U/L Alkaline Phosphatase 98 (39-117) U/L Total Protein 7.7 (6.5-8.0) g/dL Albumin 4.0 (3.5-5.0) g/dL Lipase 18 (8-78) U/L Beta HCG, Quant < 2 mIU/mL Influenza Type A (PCR) NEGATIVE (Negative) Influenza Type B (PCR) NEGATIVE (Negative) RSV RNA Qual (PCR) NEGATIVE (Negative) SARS-CoV-2 RNA (RT-PCR) NEGATIVE (Negative) S. pyogenes GrpA PEPE Negative (Negative) Independent Historian Clinical information obtained from an independent historian. History obtained from or confirmed by: Spouse External Record Review External record reviewed: Outpatient record Tests considered The following testing was considered but not selected: See narrative above, CT of the abdomen and pelvis deferred Discharge Plan Discharge Clinical Impression: Gastroenteritis Patient Disposition: Home, Self-Care Instructions: Gastroenteritis (ED) Additional Instructions: Clear fluids over the next 24 hours followed by a bland diet.Introduce a bland diet including crackers, bananas, rice, soup, toast, and boiled vegetables. This may progress to plain baked or boiled chicken or turkey. Avoid dairy products or foods high in fat or grease. Return with any new or worsening symptoms or concerns. Follow-up with your primary care doctor. Prescriptions: No Action prednisone 20 mg tablet 40 mg PO DAILY 5 Days Qty: 10 0RF albuterol sulfate 90 mcg/actuation HFA aerosol inhaler 2 puff inhalation QID PRN (Reason: shortness of breath or wheezing) Qty: 6.7 0RF Paxlovid 300 mg (150 mg x 2)-100 mg tablets,dose pack See Rx Instructions .ROUTE .COMPLEX Qty: 30 0RF Rx Instructions: take TWO 150 mg tablets of nirmatrelvir with ONE 100 mg tablet of ritonavir twice daily for 5 days cyclobenzaprine 10 mg tablet 10 mg PO TID PRN (Reason: muscle spasm) Qty: 10 0RF lidocaine 5 % adhesive patch,medicated 1 patch topical DAILY Qty: 15 0RF Rx Instructions: leave on most painful area for up to 12 hrs acetaminophen [Tylenol Extra Strength] 500 mg tablet 1,000 mg PO Q6H PRN (Reason: pain) Qty: 20 0RF prednisone 20 mg tablet 40 mg PO DAILY 5 Days Qty: 10 0RF albuterol sulfate 2.5 mg/0.5 mL solution for nebulization 5 mg inhalation Q4H PRN (Reason: shortness of breath or wheezing) Qty: 30 0RF Referrals: Physician,Unknown J [Primary Care Provider] - Stand Alone Forms: Work/School Release Interventions: ED Discharge Assessment Last Done: 06/06/24 00:10 Discharge Date/Time: 06/06/24 00:14 Print Language: Azeri
[2024-06-05 19:19] LABS: MANUAL DIFF FLAG NO
[2024-06-05 19:21] LABS: Basophils Percent Auto 0.4 % (0-2); Eosinophils Absolute Auto 0.4 X10*3/uL (0.0-0.4); Eosinophils Percent Auto 5.4 % (0-4); Hemoglobin 13.7 g/dl (12.0-16.0); Imm Gran Abs Auto 0.02 X10*3/uL (0.00-0.03); Imm Gran Pct Auto 0.3 % (0.0-0.4); Lymphocytes Absolute Auto 1.5 X10*3/uL (1.2-4.9); Mean Corpuscular HGB Conc 33.4 g/dl (31.0-35.0); Mean Corpuscular Hemoglobin 29.3 pg (27.0-33.0); Mean Corpuscular Volume 87.6 fL (80.0-98.0); Mean Platelet Volume 10.6 fL (9.4-12.3); Monocytes Absolute Auto 0.4 X10*3/uL (0.1-1.2); Neutrophils Absolute Auto 4.4 x10*3/uL (2.0-8.3); Neutrophils Percent Auto 65.9 % (45-73); Platelet Count 293 X10*3/uL (160-400); Red Blood Count 4.68 X10*6/uL (4.20-5.50); Red Cell Distribution Width 13.2 % (11.0-16.0); White Blood Count 6.7 X10*3/uL (4.8-10.8)
[2024-06-05 19:27] LABS: IDNOW Serial# 08D9AD1C; Strep A Nucleic Acid Negative (Negative)
[2024-06-05 19:35] LABS: Alanine Aminotransferase 12 U/L (0-31); Alkaline Phosphatase 98 U/L (39-117); Anion Gap 8 (12-20); Aspartate Amino Transferase 19 U/L (5-31); Bilirubin Total 0.7 mg/dL (0.0-1.0); Blood Urea Nitrogen 12 mg/dL (9-16); Calcium 8.6 mg/dL (8.4-10.2); Carbon Dioxide 26 mmol/L (22-29); Chloride 108 mmol/L (96-108); Creatinine Clr Calc Pharmacy 88.1; Estimated Glomerular Filt Rate > 60; Glucose Random 100 mg/dL (60-115); Lipase 18 U/L (8-78); Potassium 4.1 mmol/L (3.3-5.1); Sodium 138 mmol/L (135-145); Total Protein 7.7 g/dL (6.5-8.0)
[2024-06-05 19:44] LABS: HCG Quantitative < 2 mIU/mL
[2024-06-05 19:57] LABS: Influenza A PCR NEGATIVE (Negative); Influenza B PCR NEGATIVE (Negative); Resp Syncy Virus RNA Qual PCR NEGATIVE (Negative); SARS COV2 PCR INHOUSE NEGATIVE (Negative)
[2024-06-06 00:10] VITALS: BP 122/85; PULSE 86; RESP 16; TEMP 36.9; O2SAT 98
== END 2024-06-06 00:14 | disposition home or self-care (01) ==
PROVIDERS: Physician Assistant; Emergency Provider Emergency Medicine Emergency Medical Services
DX: K52.9 Noninfective gastroenteritis and colitis, unspecified (principal); R11.2 Nausea with vomiting, unspecified; Z03.818 Encounter for observation for suspected exposure to other biological agents ruled out; I10 Essential (primary) hypertension; J45.909 Unspecified asthma, uncomplicated
CPT/HCPCS: 0241U; 36415; 80053; 83690; 84702; 85025; 87651; 99282; 99283